=== PATIENT | female | born 1990 | race Caucasian/White ===

== ENCOUNTER 2017-07-29 11:50 | Emergency (ER) | payer MEDICAID | END 2017-07-29 16:20 | disposition left against medical advice (07) | LOC: FTE 11:50 | DX: Z53.21 Procedure and treatment not carried out due to patient leaving prior to being seen by health care provider (principal) ==

== ENCOUNTER 2018-01-07 17:28 | Emergency (ER) | payer MEDICAID ==
[2018-01-07 19:37] LABS: ADD MAN DIFF? NO
[2018-01-07 19:39] LABS: BASOPHIL # 0.1 10^3/ul (0.0-0.1); BASOPHILS % 0.6 % (0.0-2.0); EOSINOPHILS # 0.1 10^3/ul (0.0-0.5); EOSINOPHILS % 1.1 % (0.0-7.0); HEMATOCRIT 34.3 % (37.0-47.0); HEMOGLOBIN 11.7 g/dl (12.0-16.0); LYMPHOCYTES # 2.6 10^3/ul (0.8-2.9); LYMPHOCYTES % 28.6 % (15.0-51.0); MEAN CORPUSCULAR HEMOGLOBIN 30.5 pg (29.0-33.0); MEAN CORPUSCULAR HGB CONC 34.1 g/dl (32.0-37.0); MEAN CORPUSCULAR VOLUME 89.6 fl (82.0-101.0); MEAN PLATELET VOLUME 11.8 fl (7.4-10.4); MONOCYTE # 0.6 10^3/ul (0.3-0.9); MONOCYTES % 6.7 % (0.0-11.0); NEUTROPHIL # 5.6 10^3/ul (1.6-7.5); NEUTROPHILS % 62.6 % (39.0-77.0); PLATELET COUNT 241 10^3/UL (140-415); RED BLOOD COUNT 3.83 10^6/ul (4.20-5.40); RED CELL DISTRIBUTION WIDTH 12.1 % (11.5-14.5)
[2018-01-07 19:39] LABS: WHITE BLOOD COUNT 8.9 10^3/ul (4.8-10.8)
[2018-01-07] MEDS: ACETAMINOPHEN 325 MG TAB PO (19:40)
[2018-01-07 19:42] LABS: ADD UMIC YES; UR ASCORBIC ACID 20 mg/dL (NEGATIVE); UR BACTERIA FEW /HPF (NONE SEEN); UR BILIRUBIN (Dip) NEGATIVE (NEGATIVE); UR BLOOD (Dip) NEGATIVE (NEGATIVE); UR CLARITY CLEAR (CLEAR); UR COLOR STRAW (YELLOW); UR GLUCOSE (Dip) NEGATIVE (NEGATIVE); UR KETONES (Dip) 1+ mg/dL (NEGATIVE); UR LEUKOCYTE ESTERASE (Dip) TRACE Leu/ul (NEGATIVE); UR NITRITE (Dip) NEGATIVE (NEGATIVE); UR RBC 1 /HPF (0-5); UR SPECIFIC GRAVITY (Dip) 1.012 (1.003-1.030); UR SQUAMOUS EPITHELIAL CELL FEW /HPF (FEW); UR TOTAL PROTEIN (Dip) NEGATIVE (NEGATIVE); UR UROBILINOGEN (Dip) NEGATIVE (NEGATIVE); UR WBC 7 /HPF (0-5)
[2018-01-07 19:57] LABS: ALANINE AMINOTRANSFERASE 31 IU/L (13-69); ALBUMIN 4.5 g/dl (3.3-4.9); ALBUMIN/GLOBULIN RATIO 1.32; ALKALINE PHOSPHATASE 60 IU/L (42-121); ANION GAP 14 (8-16); ASPARTATE AMINO TRANSFERASE 23 IU/L (15-46); BILIRUBIN,INDIRECT 0.3 mg/dl (0-1.1); BILIRUBIN,TOTAL 0.3 mg/dl (0.2-1.3); BLOOD UREA NITROGEN 10 mg/dl (7-20); CALCIUM 9.7 mg/dl (8.4-10.2); CARBON DIOXIDE 24 mmol/L (21-31); CHLORIDE 104 mmol/L (97-110); CREATININE 0.59 mg/dl (0.44-1.00); GLUCOSE 89 mg/dl (70-220); POTASSIUM 4.2 mmol/L (3.5-5.1); SODIUM 138 mmol/L (135-144); TOTAL PROTEIN 7.9 g/dl (6.1-8.1)
== END 2018-01-07 22:41 | disposition home or self-care (01) ==
LOC: FTE 17:28
DX: O20.9 Hemorrhage in early pregnancy, unspecified (principal); O23.91 Unspecified genitourinary tract infection in pregnancy, first trimester; R10.2 Pelvic and perineal pain; Z3A.01 Less than 8 weeks gestation of pregnancy
CPT/HCPCS: 36415; 76801; 80053; 81001; 81025; 84702; 85025; 86900; 86901; 99284-25

== ENCOUNTER 2018-02-28 13:17 | Emergency (ER) | payer MEDICAID ==
[2018-02-28 14:40] LABS: URINE BLOOD (Dip) POC Negative (NEGATIVE); URINE GLUCOSE (Dip) POC Negative (NEGATIVE); URINE KETONES (Dip) POC Negative (NEGATIVE); URINE LEUKOCYTE EST (Dip) POC Negative (NEGATIVE); URINE NITRITE (Dip) POC Negative (NEGATIVE); URINE TOTAL PROTEIN POC Negative (NEGATIVE)
== END 2018-02-28 16:37 | disposition home or self-care (01) ==
LOC: FTE 13:17
DX: O26.892 Other specified pregnancy related conditions, second trimester (principal); R10.2 Pelvic and perineal pain; Z3A.15 15 weeks gestation of pregnancy
CPT/HCPCS: 76801; 81003; 81025; 99284-25

== ENCOUNTER 2018-05-23 09:35 | Outpatient (CLI) | payer MEDICAID ==
[2018-05-23 10:41] LABS: ADD UMIC YES; UR AMORPHOUS CRYSTAL FEW /HPF (NONE SEEN); UR ASCORBIC ACID NEGATIVE (NEGATIVE); UR BACTERIA FEW /HPF (NONE SEEN); UR BILIRUBIN (Dip) NEGATIVE (NEGATIVE); UR BLOOD (Dip) NEGATIVE (NEGATIVE); UR CLARITY CLOUDY (CLEAR); UR COLOR YELLOW (YELLOW); UR GLUCOSE (Dip) 1+ mg/dL (NEGATIVE); UR KETONES (Dip) NEGATIVE (NEGATIVE); UR LEUKOCYTE ESTERASE (Dip) NEGATIVE Leu/ul (NEGATIVE); UR MUCUS FEW /HPF (NONE SEEN); UR NITRITE (Dip) NEGATIVE (NEGATIVE); UR RBC 1 /HPF (0-5); UR SPECIFIC GRAVITY (Dip) 1.023 (1.003-1.030); UR SQUAMOUS EPITHELIAL CELL FEW /HPF (FEW); UR TOTAL PROTEIN (Dip) NEGATIVE (NEGATIVE); UR UROBILINOGEN (Dip) NEGATIVE (NEGATIVE); UR WBC 6 /HPF (0-5)
[2018-05-23 11:20] LABS: ADD MAN DIFF? NO
[2018-05-23 11:28] LABS: WHITE BLOOD COUNT 5.4 10^3/ul (4.8-10.8)
[2018-05-23 11:28] LABS: BASOPHILS % 0.4 % (0.0-2.0); EOSINOPHILS % 0.7 % (0.0-7.0); HEMATOCRIT 32.1 % (37.0-47.0); HEMOGLOBIN 10.9 g/dl (12.0-16.0); LYMPHOCYTES # 1.4 10^3/ul (0.8-2.9); LYMPHOCYTES % 26.2 % (15.0-51.0); MEAN CORPUSCULAR HEMOGLOBIN 30.9 pg (29.0-33.0); MEAN CORPUSCULAR VOLUME 90.9 fl (82.0-101.0); MEAN PLATELET VOLUME 12.4 fl (7.4-10.4); MONOCYTE # 0.5 10^3/ul (0.3-0.9); MONOCYTES % 8.5 % (0.0-11.0); NEUTROPHIL # 3.4 10^3/ul (1.6-7.5); NEUTROPHILS % 63.1 % (39.0-77.0); PLATELET COUNT 177 10^3/UL (140-415); RED BLOOD COUNT 3.53 10^6/ul (4.20-5.40); RED CELL DISTRIBUTION WIDTH 12.5 % (11.5-14.5)
[2018-05-23] MEDS: LACTATED RINGER'S 1,000 ML IV (12:36)
== END 2018-05-23 13:10 | disposition home or self-care (01) ==
LOC: OBT 09:35 → L-D 09:35 → OBT 13:10
DX: O62.9 Abnormality of forces of labor, unspecified (principal); Z3A.28 28 weeks gestation of pregnancy
CPT/HCPCS: 76817; 76818; 81001; 82731; 85025; 86850; 86900; 86901; 96360; 96361

== ENCOUNTER 2018-08-04 08:36 | Outpatient (CLI) | payer MEDICAID | END 2018-08-04 12:45 | disposition home or self-care (01) | LOC: OBT 08:36 → L-D 08:36 → OBT 12:45 | DX: O62.9 Abnormality of forces of labor, unspecified (principal); Z3A.37 37 weeks gestation of pregnancy | CPT/HCPCS: 76818 ==

== ENCOUNTER 2018-08-07 08:44 | Inpatient (IN) | payer MEDICAID ==
[2018-08-07] MEDS ORDERED: ACETAMINOPHEN 325 MG TAB PO (09:30)
[2018-08-07] MEDS: LACTATED RINGER'S 1,000 ML IV ×2 (12:14→19:36)
[2018-08-08] MEDS ORDERED: PRENATAL VITAMIN PO (09:00)
== END 2018-08-07 22:20 | disposition home or self-care (01) | DRG 833 ==
LOC: OBT 08:44 → L-D 08:45 → OBT 09:35 → L-D 09:35
DX: O47.1 False labor at or after 37 completed weeks of gestation (principal); O46.93 Antepartum hemorrhage, unspecified, third trimester; Z3A.38 38 weeks gestation of pregnancy
CPT/HCPCS: 76818

== ENCOUNTER 2018-08-11 13:00 | Inpatient (IN) | payer MEDICAID ==
[2018-08-11] MEDS ORDERED: MISOPROSTOL 200 MCG TAB PR (14:30)
[2018-08-11] MEDS ORDERED: OXYTOCIN 30 UNITS/LR 500 ML IV (14:30)
[2018-08-11] MEDS ORDERED: BUTORPHANOL 1 MG INJ IV (14:30)
[2018-08-11] MEDS ORDERED: CARBOPROST 250 MCG INJ IM (14:30)
[2018-08-11] MEDS ORDERED: METHYLERGONOVINE 0.2 MG INJ IM (14:30)
[2018-08-11] MEDS ORDERED: LIDOCAINE 1% (MPF) 30 ML INJ INJ (14:30)
[2018-08-11] MEDS ORDERED: BUTORPHANOL 2 MG INJ IV (14:30)
[2018-08-11] MEDS: AMPICILLIN 2 GM/NS (PMX) 100 ML IV (14:57)
[2018-08-11] MEDS: LACTATED RINGER'S 1,000 ML IV ×2 (14:57→23:48)
[2018-08-11 15:04] LABS: ADD MAN DIFF? NO
[2018-08-11 15:14] LABS: WHITE BLOOD COUNT 7.4 10^3/ul (4.8-10.8)
[2018-08-11 15:14] LABS: ABNORMAL IP MESSAGE 1; BASOPHILS % 0.4 % (0.0-2.0); EOSINOPHILS % 0.3 % (0.0-7.0); HEMATOCRIT 36.2 % (37.0-47.0); HEMOGLOBIN 12.3 g/dl (12.0-16.0); LYMPHOCYTES # 1.3 10^3/ul (0.8-2.9); LYMPHOCYTES % 17.3 % (15.0-51.0); MEAN CORPUSCULAR HEMOGLOBIN 30.2 pg (29.0-33.0); MEAN CORPUSCULAR VOLUME 88.9 fl (82.0-101.0); MONOCYTE # 0.3 10^3/ul (0.3-0.9); MONOCYTES % 4.6 % (0.0-11.0); NEUTROPHIL # 5.7 10^3/ul (1.6-7.5); NEUTROPHILS % 76.9 % (39.0-77.0); PLATELET COUNT 127 10^3/UL (140-415); RED BLOOD COUNT 4.07 10^6/ul (4.20-5.40); RED CELL DISTRIBUTION WIDTH 12.7 % (11.5-14.5)
[2018-08-11 15:19] LABS: POSITIVE DIFF @See below
[2018-08-11 15:28] LABS: INR 0.94; PARTIAL THROMBOPLASTIN TIME 27.6 Sec (23.0-35.0); PROTIME 12.7 Sec (11.9-14.9)
[2018-08-11 15:55] LABS: HEPATITIS B SURFACE ANTIGEN NEGATIVE (NEGATIVE)
[2018-08-11] MEDS: AMPICILLIN 1 GM/NS (PMX) 50 ML IV ×2 (18:58→23:00)
[2018-08-12] MEDS: OXYTOCIN 30 UNITS/LR 500 ML IV ×2 (01:10→01:36)
[2018-08-12] MEDS: IBUPROFEN 600 MG TAB PO ×4 (01:52→16:58)
[2018-08-12] MEDS ORDERED: OXYCODONE/ASPIRIN (4.88/325) TAB PO (03:30)
[2018-08-12] MEDS ORDERED: MISOPROSTOL 200 MCG TAB PR (03:30)
[2018-08-12] MEDS ORDERED: METHYLERGONOVINE 0.2 MG INJ IM (03:30)
[2018-08-12] MEDS ORDERED: OXYTOCIN 30 UNITS/LR 500 ML IV (03:30)
[2018-08-12] MEDS ORDERED: ZOLPIDEM 5 MG TAB PO (03:30)
[2018-08-12] MEDS ORDERED: CARBOPROST 250 MCG INJ IM (03:30)
[2018-08-12] MEDS: WITCH HAZEL/GLYCERIN PAD PR (05:42)
[2018-08-12] MEDS: BENZOCAINE 20% 56 ML SPRAY TOP (05:42)
[2018-08-12] MEDS: LANOLIN HPA 1 PKT TOP (05:42)
[2018-08-12] MEDS: SENNA/DOCUSATE NA (8.6MG/50MG) TAB PO ×2 (09:00→21:18)
[2018-08-12 16:52] LABS: RAPID PLASMA REAGIN NONREACTIVE (NR)
[2018-08-12] MEDS: OXYCODONE/ASPIRIN (4.88/325) TAB PO (19:41)
[2018-08-13] MEDS: IBUPROFEN 600 MG TAB PO ×4 (00:47→18:00)
[2018-08-13 06:42] LABS: ADD MAN DIFF? NO
[2018-08-13 06:49] LABS: WHITE BLOOD COUNT 10.5 10^3/ul (4.8-10.8)
[2018-08-13 06:49] LABS: ABNORMAL IP MESSAGE 1; BASOPHILS % 0.4 % (0.0-2.0); EOSINOPHILS # 0.2 10^3/ul (0.0-0.5); EOSINOPHILS % 1.5 % (0.0-7.0); HEMATOCRIT 30.9 % (37.0-47.0); HEMOGLOBIN 10.3 g/dl (12.0-16.0); LYMPHOCYTES # 3.3 10^3/ul (0.8-2.9); LYMPHOCYTES % 31.1 % (15.0-51.0); MEAN CORPUSCULAR HEMOGLOBIN 30.5 pg (29.0-33.0); MEAN CORPUSCULAR HGB CONC 33.3 g/dl (32.0-37.0); MEAN CORPUSCULAR VOLUME 91.4 fl (82.0-101.0); MEAN PLATELET VOLUME 13.4 fl (7.4-10.4); MONOCYTE # 0.7 10^3/ul (0.3-0.9); MONOCYTES % 6.8 % (0.0-11.0); NEUTROPHIL # 6.2 10^3/ul (1.6-7.5); NEUTROPHILS % 59.4 % (39.0-77.0); PLATELET COUNT 126 10^3/UL (140-415); RED BLOOD COUNT 3.38 10^6/ul (4.20-5.40)
[2018-08-13 07:05] LABS: POSITIVE DIFF @See below
[2018-08-13] MEDS: SENNA/DOCUSATE NA (8.6MG/50MG) TAB PO ×2 (10:37→21:14)
[2018-08-14] MEDS: IBUPROFEN 600 MG TAB PO ×3 (00:37→12:14)
[2018-08-14] MEDS: SENNA/DOCUSATE NA (8.6MG/50MG) TAB PO (09:17)
[2018-08-14] MEDS: DIPHTH/TET/ACEL PERTUSS (ADULT) 0.5 ML VIAL IM* (09:25)
== END 2018-08-14 14:00 | disposition home or self-care (01) | DRG 807 ==
LOC: OBT 13:00 → PP1 08-12 02:53 → L-D 13:00 → OBT 14:00 → L-D 14:15
PROVIDERS: Obstetrics & Gynecology
PROC: 10E0XZZ Delivery of Products of Conception, External Approach (ICD-10-PCS; principal; 2018-08-12)
DX: O70.0 First degree perineal laceration during delivery (principal); Z37.0 Single live birth; Z3A.39 39 weeks gestation of pregnancy
CPT/HCPCS: 76815; 85025; 85610; 85730; 86592; 86850; 86900; 86901; 87340; 90715; 99464